=== PATIENT | male | born 1970 | race Caucasian/White ===

== ENCOUNTER 2023-08-14 20:21 | Emergency (ER) | payer BC ==
[~2023-08-14] VITALS: Ht 165.1 cm; Wt 68.0 kg
[2023-08-14 21:37] VITALS: BP_SYST 111; PULSE 91; RESP 16; TEMP 98.3; O2SAT 96
[2023-08-14] MEDS ORDERED: BACITRACIN 1 GM OINT TP ONE (22:32)
[2023-08-14] MEDS ORDERED: HYDROcodone/ACETAMIN 5-325 MG TAB (NORCO/ VICODIN) PO ONE (22:45)
[2023-08-14] MEDS ORDERED: OXYCODONE/ACETAMINOPHEN 5-325 TABLET ONE (22:56)
[2023-08-14 23:15] VITALS: BP_SYST 111; PULSE 91; RESP 16; TEMP 98.3; O2SAT 96
[2023-08-17] MEDS ORDERED: OXYCODONE/ACETAMINOPHEN 5-325 TABLET PO ONE (19:45)
== END 2023-08-14 23:15 | disposition home or self-care (01) ==
LOC: SED 20:21
DX: Z04.3 Encounter for examination and observation following other accident (principal); M25.532 Pain in left wrist; R51.9 Headache, unspecified; Z79.899 Other long term (current) drug therapy
CPT/HCPCS: 70450-TC; 72125-TC; 76376; 99284